=== PATIENT | female | born 1985 | race Caucasian/White ===

== ENCOUNTER 2018-12-15 15:47 | Emergency (ER) | payer OTHER ==
[~2018-12-15] VITALS: Ht 165.1 cm; Wt 61.2 kg
[2018-12-15] MEDS ORDERED: PROPRANOLOL HCL20 MG PO (16:15)
[2018-12-15] MEDS ORDERED: METHIMAZOLE10 MG PO (16:15)
== END 2018-12-15 19:39 | disposition home or self-care (01) ==
LOC: ER 15:47
DX: G24.3 Spasmodic torticollis (principal)

== ENCOUNTER 2021-01-29 12:00 | Outpatient (CLI) | payer OTHER ==
[~2021-01-29 12:00] MED LIST: METHIMAZOLE10 MG PO; PROPRANOLOL HCL20 MG PO
== END 2021-01-29 12:33 | disposition home or self-care (01) ==
LOC: NST 12:00
PROVIDERS: ATTEND Obstetrics & Gynecology
DX: Z34.83 Encounter for supervision of other normal pregnancy, third trimester (principal)

== ENCOUNTER 2021-03-02 09:33 | Outpatient (CLI) | payer OTHER | END 2021-03-02 11:17 | disposition home or self-care (01) | LOC: NST 09:33 | PROVIDERS: ATTEND Obstetrics & Gynecology | DX: Z34.83 Encounter for supervision of other normal pregnancy, third trimester (principal) ==

== ENCOUNTER 2021-03-09 16:09 | Outpatient (CLI) | payer OTHER | END 2021-03-09 16:30 | disposition home or self-care (01) | LOC: NST 16:09 | PROVIDERS: ATTEND Obstetrics & Gynecology | DX: Z34.83 Encounter for supervision of other normal pregnancy, third trimester (principal) ==

== ENCOUNTER 2022-07-23 16:33 | Outpatient (CLI) | payer OTHER | END 2022-07-23 18:29 | disposition home or self-care (01) | LOC: NST 16:33 | PROVIDERS: ATTEND Obstetrics & Gynecology | DX: Z34.83 Encounter for supervision of other normal pregnancy, third trimester (principal) ==

== ENCOUNTER 2022-07-25 11:28 | Inpatient (IN) | payer OTHER ==
[~2022-07-25] VITALS: Ht 165.1 cm; Wt 3.2 kg
[2022-07-27] MEDS ORDERED: FAMOTIDINE40 MG (08:41)
[2022-07-27] MEDS ORDERED: ESOMEPRAZOLE MA40 MG (08:41)
== END 2022-07-28 13:34 | disposition home or self-care (01) | DRG 788 ==
LOC: LDR 11:28 → OB/GYN 11:28
PROVIDERS: ADMIT Obstetrics & Gynecology Gynecology; ATTEND Obstetrics & Gynecology Gynecology
PROC: 4A1HXCZ Monitoring of Products of Conception, Cardiac Rate, External Approach (ICD-10-PCS; 2022-07-25)
PROC: 10D00Z1 Extraction of Products of Conception, Low, Open Approach (ICD-10-PCS; principal; 2022-07-25 12:00)
DX: O34.211 Maternal care for low transverse scar from previous cesarean delivery (principal); Z3A.38 38 weeks gestation of pregnancy; Z37.0 Single live birth; Z20.822 Contact with and (suspected) exposure to COVID-19